=== PATIENT | male | born 1985 ===

== ENCOUNTER 2018-10-10 17:43 | Emergency (ER) | payer OTHER ==
[2018-10-10] MEDS ORDERED: SOLU-Medrol IV ONE (17:54)
[2018-10-10] MEDS ORDERED: PEPCID IV ONE (17:54)
[2018-10-10] MEDS ORDERED: BENADRYL IV ONE (17:54)
--- NOTE | 2018-10-10 17:58 | Emergency Department Report ---
HPI - General Chief Complaint: Allergic Reaction ED Past Medical Hx - Past Medical History Previous Medical History?: No - Surgical History Past Surgical History?: No - Social History Smoking Status: Never Smoker Substance Use Type: None ED Review of Systems ROS: Stated complaint: ALLERGIC REACTION Other details as noted in HPI Physical Exam - Physical Exam Vital Signs: Vital Signs 10/10/18 17:45 Temperature 98.8 F Pulse Rate 83 Respiratory 22 Rate Blood Pressure 139/85 O2 Sat by Pulse 97 Oximetry ED Course Vital Signs 10/10/18 17:45 Temperature 98.8 F Pulse Rate 83 Respiratory 22 Rate Blood Pressure 139/85 O2 Sat by Pulse 97 Oximetry Critical care attestation.: If time is entered above; I have spent that time in minutes in the direct care of this critically ill patient, excluding procedure time. ED Disposition Condition: Stable
[2018-10-10] MEDS ORDERED: DUONEB *Not for PRN Use IH ONE (18:01)
--- NOTE | 2018-10-10 18:21 | Emergency Department Report ---
ED Allergic Reaction HPI - General Chief complaint: Allergic Reaction Stated complaint: ALLERGIC REACTION Time Seen by Provider: 10/10/18 18:05 Source: patient Mode of arrival: Ambulatory Limitations: Language Barrier - History of Present Illness Initial Comments: Patient is a 32-year-old male that presents emergency room with complaints of allergic reaction. Patient states he is having mild shortness of breath and cough. Patient states that he is having rash on his upper body. Patient states he was bit by something on his left neck and all the symptoms develop. Patient states she has a history of reactive airway disease. Patient states that his symptoms are better with rest. Patient states his symptoms are worse with exertion. Patient denies fever chills. Patient denies headache. Patient denies dizziness. Patient states that he was having some throat discomfort but was not having any difficulty swallowing and did not have the sensation that his throat was closing. MD Complaint: allergic reaction, hives -: Sudden Exposure: insect bite Symptoms: rash, itching, difficulty swallowing, difficulty breathing Severity: severe Treatment Prior to Arrival: none Previous Allergy History: none - Related Data Previous Rx's Medication Instructions Recorded Last Taken Type methylPREDNISolone [Medrol 4MG 4 mg PO DAILY 6 Days #1 tab.ds.pk 10/10/18 Unknown Rx DOSEPAK (21 tabs)] Allergies Allergy/AdvReac Type Severity Reaction Status Date / Time No Known Allergies Allergy Unverified 10/10/18 17:45 ED Review of Systems ROS: Stated complaint: ALLERGIC REACTION Other details as noted in HPI Constitutional: denies: chills, fever Eyes: denies: eye pain, eye discharge, vision change ENT: denies: ear pain, throat pain Respiratory: cough, shortness of breath, wheezing Cardiovascular: denies: chest pain, palpitations Endocrine: no symptoms reported Gastrointestinal: denies: abdominal pain, nausea, diarrhea Genitourinary: denies: urgency, dysuria Musculoskeletal: denies: back pain, joint swelling, arthralgia Skin: rash. denies: lesions Neurological: denies: headache, weakness, paresthesias Psychiatric: denies: anxiety, depression Hematological/Lymphatic: denies: easy bleeding, easy bruising ED Past Medical Hx - Past Medical History Previous Medical History?: Yes Additional medical history: Reactive airway disease - Surgical History Past Surgical History?: No - Family History Family history: no significant - Social History Smoking Status: Never Smoker Substance Use Type: None - Medications Home Medications: Home Medications Medication Instructions Recorded Confirmed Last Taken Type methylPREDNISolone [Medrol 4MG 4 mg PO DAILY 6 Days #1 tab.ds.pk 10/10/18 Unknown Rx DOSEPAK (21 tabs)] ED Physical Exam - General Limitations: Language Barrier General appearance: alert, in no apparent distress - Head Head exam: Present: atraumatic, normocephalic - Eye Eye exam: Present: normal appearance - ENT ENT exam: Present: mucous membranes moist - Neck Neck exam: Present: normal inspection - Respiratory Respiratory exam: Present: wheezes. Absent: normal lung sounds bilaterally, respiratory distress - Cardiovascular Cardiovascular Exam: Present: regular rate, normal rhythm. Absent: systolic murmur, diastolic murmur, rubs, gallop - GI/Abdominal GI/Abdominal exam: Present: soft, normal bowel sounds. Absent: distended, tenderness - Rectal Rectal exam: Present: deferred - Extremities Exam Extremities exam: Present: normal inspection - Back Exam Back exam: Present: normal inspection - Neurological Exam Neurological exam: Present: alert, oriented X3 - Psychiatric Psychiatric exam: Present: normal affect, normal mood - Skin Skin exam: Present: warm, dry, intact, rash, urticaria ED Course Vital Signs 10/10/18 10/10/18 10/10/18 17:45 18:04 18:13 Temperature 98.8 F Pulse Rate 83 Pulse Rate [ 74 Anterior Bilateral Throughout] Respiratory 22 Rate Respiratory 18 Rate [Anterior Bilateral Throughout] Blood Pressure 139/85 149/78 Blood Pressure [Left] O2 Sat by Pulse 97 99 Oximetry 10/10/18 10/10/18 10/10/18 18:15 18:27 19:05 Temperature 98.1 F Pulse Rate 77 Pulse Rate [ 79 Anterior Bilateral Throughout] Respiratory 18 18 Rate Respiratory 18 Rate [Anterior Bilateral Throughout] Blood Pressure Blood Pressure 136/79 [Left] O2 Sat by Pulse 98 99 Oximetry - Reevaluation(s) Reevaluation #1: Patient states she is feeling better. Patient denies shortness of breath. Patient denies toe pain. Patient denies itching. Patient is alert he received Benadryl, prednisone and Medrol. 10/10/18 18:19 Patient is completely breathing treatment and his wheezes have resolved. Patient states he feels back to baseline and is not having any shortness of breath or cough or rash 10/10/18 18:30 All of patient's symptoms have resolved. Patient states he is feeling much be tter. Discussed all clinical findings with patient. Patient is stable for discharge. Patient will be discharged home.. Patient agrees to plan of care.. Patient given discharge instructions. Patient voiced understanding of discharge instructions. 10/10/18 20:10 ED Medical Decision Making - Medical Decision Making Patient is a 32-year-old male that presents emergency room all the patient's symptoms have completely resolved with therapy. Patient responded well to the patient they will discharge. Patient was discharged home. Patient given discharge instructions. - Differential Diagnosis rash. Urticaria. Allergic reaction Critical Care Time: Yes Critical care attestation.: If time is entered above; I have spent that time in minutes in the direct care of this critically ill patient, excluding procedure time. Critical Care Time: 35 minutes ED Disposition Clinical Impression: Cough, Wheezing, Urticaria Allergic reaction Qualifiers: Encounter type: initial encounter Qualified Code(s): T78.40XA - Allergy, unspecified, initial encounter Insect bite Qualifiers: Encounter type: initial encounter Site of insect bite: unspecified part of neck Qualified Code(s): S10.96XA - Insect bite of unspecified part of neck, initial encounter; W57.XXXA - Bitten or stung by nonvenomous insect and other nonvenomous arthropods, initial encounter Reactive airway disease Qualifiers: Asthma severity: mild Asthma persistence: unspecified Qualified Code(s): J45.909 - Unspecified asthma, uncomplicated Disposition: - TO HOME OR SELFCARE Is pt being admited?: No Does the pt Need Aspirin: No Condition: Stable Instructions: Urticaria (ED), Acute Rash (ED), Reactive Airways Disease (ED), Allergies (ED) Additional Instructions: Patient to follow-up with primary care in 2-3 days. Patient to take Tylenol or ibuprofen when necessary for pain. Patient to return to ER if condition worsens. Patient to take meds as directed. Patient to increase water. Patient to rest. benadryl as needed. Prescriptions: methylPREDNISolone [Medrol 4MG DOSEPAK (21 tabs)] 4 mg PO DAILY 6 Days #1 tab.ds.pk Referrals: DEANGELO HARMON MD [Primary Care Provider] - 2-3 Days Time of Disposition: 20:08 Print Language: YORUBA
[2018-10-10 19:21] VITALS: BP 136/79
== END 2018-10-10 20:32 | disposition home or self-care (01) ==
LOC: ED 17:43
DX: T78.40XA Allergy, unspecified, initial encounter (principal); S10.96XA Insect bite of unspecified part of neck, initial encounter; J45.909 Unspecified asthma, uncomplicated; W57.XXXA Bitten or stung by nonvenomous insect and other nonvenomous arthropods, initial encounter; Y93.89 Activity, other specified; Y92.89 Other specified places as the place of occurrence of the external cause; Y99.8 Other external cause status
CPT/HCPCS: 94640; 96374; 96375; 99283; J1200; J2930